=== PATIENT | male | born 1970 | race Two or more races ===

== ENCOUNTER 2016-11-02 18:50 | Emergency (ER) | payer OTHER ==
[~2016-11-02] VITALS: Ht 167.6 cm; Wt 97.7 kg
[2016-11-02] MEDS ORDERED: htn PO (19:09)
[2016-11-02] MEDS ORDERED: thyroid PO (19:09)
[2016-11-02] MEDS ORDERED: KETOROLAC TROMETHAMINE 60 MG/2 ML VIAL IM ONE (21:45)
[2016-11-02 21:48] VITALS: BP 128/87
== END 2016-11-02 22:05 | disposition home or self-care (01) ==
LOC: EMS 18:52
DX: L03.011 Cellulitis of right finger (principal); L02.511 Cutaneous abscess of right hand; I10 Essential (primary) hypertension
CPT/HCPCS: 73140; 96372; 99284; J0690; J1885

== ENCOUNTER 2017-02-17 16:03 | Emergency (ER) | payer OTHER ==
[~2017-02-17] VITALS: Ht 167.6 cm; Wt 100.0 kg
[~2017-02-17 16:03] MED LIST: htn PO; thyroid PO
[2017-02-17] MEDS ORDERED: OMEP20CA10 PO (16:32)
[2017-02-17] MEDS ORDERED: LOVA20TA3 PO (16:32)
[2017-02-17] MEDS ORDERED: GABA-531 PO (16:32)
[2017-02-17] MEDS ORDERED: THYR30TA2 PO (16:32)
[2017-02-17] MEDS ORDERED: LISI-618 PO (16:32)
[2017-02-17] MEDS ORDERED: BACLOFEN 10 MG TABLET PO ONE (18:45)
[2017-02-17] MEDS ORDERED: IBUPROFEN 800 MG TABLET PO ONE (18:45)
[2017-02-17 18:56] VITALS: BP 134/73
== END 2017-02-17 19:02 | disposition home or self-care (01) ==
LOC: EMS 16:04
DX: S13.9XXA Sprain of joints and ligaments of unspecified parts of neck, initial encounter (principal); S43.401A Unspecified sprain of right shoulder joint, initial encounter; S46.911A Strain of unspecified muscle, fascia and tendon at shoulder and upper arm level, right arm, initial encounter; I10 Essential (primary) hypertension; E03.9 Hypothyroidism, unspecified; X58.XXXA Exposure to other specified factors, initial encounter; Y93.89 Activity, other specified; Y92.89 Other specified places as the place of occurrence of the external cause; Y99.8 Other external cause status
CPT/HCPCS: 93005; 99283

== ENCOUNTER 2023-02-17 23:05 | Emergency (ER) | payer OTHER ==
[~2023-02-17] VITALS: Ht 167.6 cm; Wt 95.0 kg
[~2023-02-17 23:05] MED LIST changes: +GABA-531 PO; +LISI20TA24 PO; +LOVA20TA3 PO; +OMEP20CA12 PO; +THYR30TA2 PO; -htn PO; -thyroid PO
[2023-02-18] MEDS ORDERED: LIDOCAINE 1% 10 ML VIAL SQ ONE
[2023-02-18] MEDS ORDERED: POVIDONE-IODINE 10% 120 ML SOLUTION TP ONE
[2023-02-18] MEDS ORDERED: CEPH-558 PO (00:21)
[2023-02-18] MEDS ORDERED: SULF-261 PO (00:21)
[2023-02-18 01:48] VITALS: BP 105/57
== END 2023-02-18 02:36 | disposition home or self-care (01) ==
LOC: EMS 23:07
DX: L02.811 Cutaneous abscess of head [any part, except face] (principal); I10 Essential (primary) hypertension; E03.9 Hypothyroidism, unspecified
CPT/HCPCS: 99283; 10060; J3490

== ENCOUNTER 2023-02-19 20:43 | Emergency (ER) | payer OTHER ==
[~2023-02-19] VITALS: Ht 167.6 cm; Wt 95.0 kg
[~2023-02-19 20:43] MED LIST changes: +CEPH-558 PO; +SULF-261 PO
[2023-02-19 20:45] VITALS: BP 157/103
== END 2023-02-19 21:15 | disposition home or self-care (01) ==
LOC: EMS 20:43
DX: L02.811 Cutaneous abscess of head [any part, except face] (principal); I10 Essential (primary) hypertension; Z79.899 Other long term (current) drug therapy
CPT/HCPCS: 99281; Z7502

== ENCOUNTER 2023-02-21 20:53 | Emergency (ER) | payer OTHER ==
[~2023-02-21] VITALS: Ht 167.6 cm; Wt 97.7 kg
[2023-02-21 20:59] VITALS: BP 120/95
== END 2023-02-21 21:53 | disposition home or self-care (01) ==
LOC: EMS 20:54
DX: L02.811 Cutaneous abscess of head [any part, except face] (principal); I10 Essential (primary) hypertension; E03.9 Hypothyroidism, unspecified
CPT/HCPCS: 99283; Z7502